=== PATIENT | male | born 1965 | race Hispanic/Latino ===

== ENCOUNTER 2016-11-05 18:56 | Inpatient (IN) | payer MEDICAID ==
--- NOTE | 2016-11-05 20:39 | Emergency Department Report ---
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 Patient denies shortness of breath or chest pain. Patient was medicated with by writing. - ROS Review of Systems: As noted in HPI - Exam Vital Signs: Vital Signs 11/05/16 19:39 Temperature 98.2 F Pulse Rate 64 Respiratory 22 Rate Blood Pressure 94/64 O2 Sat by Pulse 98 Oximetry Physical Exam: GENERAL: Alert and oriented x3, no apparent distress, Normal Gait, atraumatic. HEAD: Head is normocephalic and a-traumatic. NECK: Supple. Non edematous, No carotid bruits. No lymphadenopathy or thyromegaly. LUNGS: Symetrical with respiration, mild wheezing bilaterally, no rales or crackles. HEART: S1, S2 present, regular rate and rhythm without murmur, no rubs, no gallops. ABDOMEN: No organomegaly was noted,Positive bowel sounds, soft, and non- distended. . Nontender to palpation on all Quadrants, NO CVA tenderness. SKIN: Warm and dry, No lesions, No ulceration or induration present. MSE screening note: Focused history and physical exam performed. Due to findings the following was ordered: ED Medical Decision Making - Medical Decision Making Patient indicates that he is all out of these medications and will likely refill. Patient's vital signs are stable. Saturation 98%. Patient is in no acute or respiratory distress. Patient sent over to fast track to be seen and get his medications refilled. ED Disposition for MSE Condition: Stable
[2016-11-06] MEDS ORDERED: ATROVENT IH ONE (02:31)
[2016-11-06] MEDS ORDERED: PROVENTIL IH ONE ×2 (02:31→03:29)
[2016-11-06] MEDS ORDERED: MAGNESIUM SULFATE 2GM/50ML 50 ML IV ONE (02:32)
--- NOTE | 2016-11-06 02:33 | Emergency Department Report ---
ED Asthma HPI - General Chief Complaint: Dyspnea/Respdistress Stated Complaint: PRAVIN Time Seen by Provider: 11/06/16 02:24 Source: patient Mode of arrival: Wheelchair Limitations: Other - History of Present Illness Initial Comments: Written Communication Patient here he is deaf. Throat and communication patient reports shortness of breath and nonproductive cough with chest tightness. He ran out of his asthma medication which she said his albuterol and going since today. Denies any fever or chills. He said he is having chest tightness at 9 out of 10 and he had similar episode with his asthma attacks. MD Complaint: "asthma attack", shortness of breath, wheezing -: This afternoon Asthma History: history of prior ED visit Severity: similar to prior Context: ran out of meds Associated Symptoms: dry cough Treatments Prior to Arrival: other (none) - Related Data Current Asthma Therapy: none Home Medications Medication Instructions Recorded Confirmed Last Taken ALBUTEROL NEB's [Proventil] 2.5 mg IH TID PRN 11/06/16 11/06/16 Unknown Albuterol Sulfate [Proair 90 mcg IH Q4H PRN 11/06/16 11/06/16 Unknown Respiclick] Benzonatate 200 mg PO TID 11/06/16 11/06/16 Unknown Butalb/Acetaminophen/Caffeine 1 each PO Q4H PRN 11/06/16 11/06/16 Unknown [Fioricet 50-300-40 mg CAP] Ipratropium [Atrovent] 0.5 mg IH Q4HR 11/06/16 11/06/16 Unknown Levofloxacin [Levaquin TAB] 500 mg PO QDAY 11/06/16 11/06/16 Unknown Montelukast [Singulair] 10 mg PO QPM 11/06/16 11/06/16 Unknown Nicotine [Habitrol] 21 mg TD DAILY 11/06/16 11/06/16 Unknown methylPREDNISolone 4 mg PO QDAY 11/06/16 11/06/16 Unknown Allergies Allergy/AdvReac Type Severity Reaction Status Date / Time No Known Allergies Allergy Verified 11/05/16 19:44 ED Review of Systems ROS: Stated complaint: PRAVIN Other details as noted in HPI Comment: All other systems reviewed and negative Constitutional: denies: chills, fever ENT: denies: ear pain, throat pain, congestion Respiratory: cough, shortness of breath, SOB with exertion, wheezing. denies: SOB at rest Cardiovascular: chest pain (chest tightness). denies: palpitations, edema, syncope Gastrointestinal: denies: abdominal pain, nausea, vomiting, diarrhea Musculoskeletal: denies: back pain, arthralgia Skin: denies: rash Neurological: denies: headache, weakness, numbness, paresthesias ED Past Medical Hx - Past Medical History Previous Medical History?: Yes Hx Asthma: Yes - Surgical History Past Surgical History?: No - Family History Family history: no significant - Social History Smoking Status: Never Smoker Substance Use Type: None - Medications Home Medications: Home Medications Medication Instructions Recorded Confirmed Last Taken Type ALBUTEROL NEB's [Proventil] 2.5 mg IH TID PRN 11/06/16 11/06/16 Unknown History Albuterol Sulfate [Proair 90 mcg IH Q4H PRN 11/06/16 11/06/16 Unknown History Respiclick] Benzonatate 200 mg PO TID 11/06/16 11/06/16 Unknown History Butalb/Acetaminophen/Caffeine 1 each PO Q4H PRN 11/06/16 11/06/16 Unknown History [Fioricet 50-300-40 mg CAP] Ipratropium [Atrovent] 0.5 mg IH Q4HR 11/06/16 11/06/16 Unknown History Levofloxacin [Levaquin TAB] 500 mg PO QDAY 11/06/16 11/06/16 Unknown History Montelukast [Singulair] 10 mg PO QPM 11/06/16 11/06/16 Unknown History Nicotine [Habitrol] 21 mg TD DAILY 11/06/16 11/06/16 Unknown History methylPREDNISolone 4 mg PO QDAY 11/06/16 11/06/16 Unknown History ED Physical Exam - General Limitations: Other (patient is deaf) General appearance: alert, other (mild distress from wheezing) - Head Head exam: Present: atraumatic, normocephalic, normal inspection - Eye Eye exam: Present: normal appearance, PERRL, EOMI. Absent: periorbital swelling , periorbital tenderness Pupils: Present: normal accommodation - ENT ENT exam: Present: normal exam, normal orophraynx, mucous membranes moist, TM's normal bilaterally, normal external ear exam - Neck Neck exam: Present: normal inspection, full ROM. Absent: tenderness, lymphadenopathy - Respiratory Respiratory exam: Present: respiratory distress, wheezes, rhonchi, other ( congested cough). Absent: stridor, chest wall tenderness, accessory muscle use , decreased breath sounds, prolonged expiratory - Cardiovascular Cardiovascular Exam: Present: regular rate, normal rhythm, normal heart sounds - GI/Abdominal GI/Abdominal exam: Present: soft, normal bowel sounds. Absent: distended, tenderness, guarding, rebound, rigid - Extremities Exam Extremities exam: Present: normal inspection, full ROM, normal capillary refill. Absent: tenderness, pedal edema, joint swelling, calf tenderness - Back Exam Back exam: Present: normal inspection, full ROM. Absent: tenderness, CVA tenderness (R), CVA tenderness (L), muscle spasm, paraspinal tenderness, vertebral tenderness, rash noted - Neurological Exam Neurological exam: Present: alert, oriented X3, normal gait, reflexes normal. Absent: motor sensory deficit - Psychiatric Psychiatric exam: Present: normal affect, normal mood - Skin Skin exam: Present: warm, dry, intact, normal color. Absent: rash ED Course Vital Signs 11/05/16 11/06/16 19:39 00:57 Temperature 98.2 F 97.6 F Pulse Rate 64 79 Respiratory 22 20 Rate Blood Pressure 94/64 Blood Pressure 108/67 [Right] O2 Sat by Pulse 98 93 Oximetry - Reevaluation(s) Reevaluation #1: 11/06/16 04:20 Patient given albuterol 10 mg and Atrovent 0.5 mg nebulizer treatment in emergency room. He was also given magnesium 2 g and Solu-Medrol 125 mg IV. He still remains with difficulty in breathing. Patient is still wheezing and congested cough. Additional 10 mg of albuterol ordered and in progress. Reevaluation #2: 11/06/16 04:21 Chest x-ray revealed no acute cardiopulmonary findings. - Consultations Consultation #1: 11/06/16 04:[address] Woodward hospitalist who will accept admission. ED Medical Decision Making - Lab Data Result diagrams: 11/06/16 03:34 11/06/16 03:34 Lab Results 11/06/16 11/06/16 11/06/16 Range/Units 03:34 03:34 03:34 WBC 12.6 H (4.5-11.0) K/mm3 RBC 4.72 (3.65-5.03) M/mm3 Hgb 15.1 (11.8-15.2) gm/dl Hct 44.8 (35.5-45.6) % MCV 95 H (84-94) fl MCH 32 (28-32) pg MCHC 34 (32-34) % RDW 14.2 (13.2-15.2) % Plt Count 327 (140-440) K/mm3 Lymph # Radio Station [employer] Sodium 139 (137-145) mmol/L Potassium 4.5 (3.6-5.0) mmol/L Chloride 100.4 (98-107) mmol/L Carbon Dioxide 22 (22-30) mmol/L Anion Gap 21 mmol/L BUN 19 (9-20) mg/dL Creatinine 0.6 L (0.8-1.5) mg/dL Estimated GFR > 60 ml/min BUN/Creatinine Ratio 31.66 % Glucose 98 (75-100) mg/dL Lactic Acid 1.7 (0.7-2.0) mmol/L Calcium 9.1 (8.4-10.2) mg/dL - EKG Data EKG shows normal: sinus rhythm Rate: normal - EKG Data When compared to previous EKG there are: previous EKG unavailable Interpretation: normal EKG - Radiology Data Radiology results: report reviewed Chest x-ray revealed no acute cardiopulmonary processes - Medical Decision Making ED course: I collaborated with Dr. Larsen on patient presentation and clinical findings. Patient was given 2 g magnesium and 125 mg Solu-Medrol IV. He was also given albuterol 10 mg with Atrovent 0.5 mg nebulizer which did not relieve his wheezing and he said he did not feel better. Additional 10 mg of albuterol nebulizer given. Chest x-ray negative . It was decided the patient will be admitted to hospital as inpatient for treatment of asthma. Lactic acid normal. White count mildly elevated chemistries normal. I discussed this with patient written communication and he agrees to be admitted. I spoke with hospitalist Dr. Woodward agrees to accept patient for admission to inpatient. Critical care attestation.: If time is entered above; I have spent that time in minutes in the direct care of this critically ill patient, excluding procedure time. ED Disposition Clinical Impression: Cough Acute asthma exacerbation Qualifiers: Asthma severity: severe persistent Qualified Code(s): J45.51 - Severe persistent asthma with (acute) exacerbation Disposition: OP ADMITTED IP TO THIS HOSP Is pt being admited?: Yes Does the pt Need Aspirin: No Condition: Stable
[2016-11-06 03:49] LABS: Hematocrit 44.8 % (35.5-45.6); Hemoglobin 15.1 gm/dl (11.8-15.2); Mean Corpuscular HGB Conc 34 % (32-34); Mean Corpuscular Hemoglobin 32 pg (28-32); Mean Corpuscular Volume 95 fl (84-94); Platelet Count 327 K/mm3 (140-440); Red Blood Count 4.72 M/mm3 (3.65-5.03); Red Cell Distribution Width 14.2 % (13.2-15.2); White Blood Count 12.6 K/mm3 (4.5-11.0)
--- NOTE | 2016-11-06 04:01 | XRay Report ---
FINAL REPORT PROCEDURE: XR CHEST ROUTINE 2V TECHNIQUE: PA and lateral chest radiographs were obtained. CPT 37398 HISTORY: cough,sob COMPARISON: No prior studies are available for comparison. FINDINGS: Heart: Normal. Mediastinum/Vessels: Normal. Lungs/Pleural space: Mild hyperinflation of the lungs. No acute consolidation or effusion.. Bony thorax: No acute osseous abnormality. Other: IMPRESSION: No evidence of acute infiltrate or effusion..
[2016-11-06 04:03] LABS: BUN/Creatinine Ratio 31.66; Blood Urea Nitrogen 19 mg/dL (9-20); Calcium 9.1 mg/dL (8.4-10.2); Carbon Dioxide 22 mmol/L (22-30); Chloride 100.4 mmol/L (98-107); Glucose 98 mg/dL (75-100); Potassium 4.5 mmol/L (3.6-5.0); Sodium 139 mmol/L (137-145)
[2016-11-06 04:07] LABS: Anion Gap 21 mmol/L
--- NOTE | 2016-11-06 04:53 | History and Physical Report ---
History of Present Illness Date of examination: 11/06/16 Date of admission: 11/06/16 Chief complaint: chest pain and sob History of present illness: 51-year-old deaf male who presents to the emergency Department with complaints of cough, shortness of breath and chest tightness. Patient reports that his symptoms began approximately 3 days ago. Communication was performed by written notes. Patient is a poor historian. I am unable to determine whether the chest tightness is related to his typical asthma exacerbations. Patient is also unclear regarding history of coronary artery disease or PA in the past. Patient describes excruciating 10/10 pain. He denies any nausea, vomiting or diaphoresis. Patient reportedly ran out of his asthma medication. No reports of headache or visual disturbances. No fever chills. Past History Past Medical History: other (asthma) Past Surgical History: No surgical history Social history: no significant social history Family history: no significant family history Medications and Allergies Allergies Allergy/AdvReac Type Severity Reaction Status Date / Time No Known Allergies Allergy Verified 11/05/16 19:44 Home Medications Medication Instructions Recorded Confirmed Last Taken Type ALBUTEROL NEB's [Proventil] 2.5 mg IH TID PRN 11/06/16 11/06/16 Unknown History Albuterol Sulfate [Proair 90 mcg IH Q4H PRN 11/06/16 11/06/16 Unknown History Respiclick] Benzonatate 200 mg PO TID 11/06/16 11/06/16 Unknown History Butalb/Acetaminophen/Caffeine 1 each PO Q4H PRN 11/06/16 11/06/16 Unknown History [Fioricet 50-300-40 mg CAP] Ipratropium [Atrovent] 0.5 mg IH Q4HR 11/06/16 11/06/16 Unknown History Levofloxacin [Levaquin TAB] 500 mg PO QDAY 11/06/16 11/06/16 Unknown History Montelukast [Singulair] 10 mg PO QPM 11/06/16 11/06/16 Unknown History Nicotine [Habitrol] 21 mg TD DAILY 11/06/16 11/06/16 Unknown History methylPREDNISolone 4 mg PO QDAY 11/06/16 11/06/16 Unknown History Review of Systems All systems: negative Exam - Constitutional Vitals: Temp Pulse Resp BP Pulse Ox 97.6 F 79 20 108/67 93 11/06/16 00:57 11/06/16 00:57 11/06/16 00:57 11/06/16 00:57 11/06/16 00:57 General appearance: Present: no acute distress, well-nourished - EENT Eyes: Present: PERRL ENT: hearing intact, clear oral mucosa - Neck Neck: Present: supple, normal ROM - Respiratory Respiratory effort: normal Respiratory: bilateral: diminished, rhonchi, wheezing - Cardiovascular Heart Sounds: Present: S1 & S2. Absent: rub, click - Extremities Extremities: pulses symmetrical, No edema Peripheral Pulses: within normal limits - Abdominal General gastrointestinal: Present: soft, non-tender, non-distended, normal bowel sounds Male genitourinary: Present: normal - Integumentary Integumentary: Present: clear, warm, dry - Musculoskeletal Musculoskeletal: gait normal, strength equal bilaterally - Psychiatric Psychiatric: appropriate mood/affect, intact judgment & insight - Neurologic Neurologic: CNII-XII intact, moves all extremities Results - Labs CBC & Chem 7: 11/06/16 03:34 11/06/16 03:34 Labs: Laboratory Last Values WBC 12.6 K/mm3 (4.5-11.0) H 11/06/16 03:34 RBC 4.72 M/mm3 (3.65-5.03) 11/06/16 03:34 Hgb 15.1 gm/dl (11.8-15.2) 11/06/16 03:34 Hct 44.8 % (35.5-45.6) 11/06/16 03:34 MCV 95 fl (84-94) H 11/06/16 03:34 MCH 32 pg (28-32) 11/06/16 03:34 MCHC 34 % (32-34) 11/06/16 03:34 RDW 14.2 % (13.2-15.2) 11/06/16 03:34 Plt Count 327 K/mm3 (140-440) 11/06/16 03:34 Lymph # Pleater Hand 11/06/16 03:34 Sodium 139 mmol/L (137-145) 11/06/16 03:34 Potassium 4.5 mmol/L (3.6-5.0) 11/06/16 03:34 Chloride 100.4 mmol/L (98-107) 11/06/16 03:34 Carbon Dioxide 22 mmol/L (22-30) 11/06/16 03:34 Anion Gap 21 mmol/L 11/06/16 03:34 BUN 19 mg/dL (9-20) 11/06/16 03:34 Creatinine 0.6 mg/dL (0.8-1.5) L 11/06/16 03:34 Estimated GFR > 60 ml/min 11/06/16 03:34 BUN/Creatinine Ratio 31.66 % 11/06/16 03:34 Glucose 98 mg/dL (75-100) 11/06/16 03:34 Lactic Acid 1.7 mmol/L (0.7-2.0) 11/06/16 03:34 Calcium 9.1 mg/dL (8.4-10.2) 11/06/16 03:34 Assessment and Plan Assessment and plan: 1. Acute asthma exacerbation. Patient was placed some asthma pathway and treated with nebulizer treatments, IV steroids and antibiotics. 2. Chest pain. Etiology may be secondary to #1. Patient will place on the chest pain pathway and continue to trend cardiac enzymes. Patient may need stress evaluation once asthma exacerbation has resolved. 3. Acute bronchitis. IV antibiotics.
[2016-11-06] MEDS ORDERED: BABY ASPIRIN PO STA (04:58)
[2016-11-06] MEDS ORDERED: MILK OF MAGNESIA PO PRN (04:58)
[2016-11-06] MEDS ORDERED: DULCOLAX PR PRN (04:58)
[2016-11-06] MEDS ORDERED: SODIUM CHLORIDE FLUSH SYRINGE 10 ML IV PRN (04:58)
[2016-11-06] MEDS ORDERED: ZOFRAN IV PRN (04:58)
[2016-11-06] MEDS ORDERED: LEVAQUIN 500MG/100ML 100 ML IV SCH (05:03)
[2016-11-06 05:22] LABS: Creatine Kinase MB 2.2 ng/mL (0.0-4.0)
[2016-11-06 05:24] LABS: Creatine Kinase 115 units/L (55-170)
[2016-11-06 06:06] LABS: Anisocytosis 1+; Basophils % (Manual) 0 % (0.0-1.8); Blastocytes % (Manual) 0 %; Hypochromasia 1+
[2016-11-06 06:07] LABS: Diff Status Complete; Large Platelets Rare
--- NOTE | 2016-11-06 06:54 | Admit Criteria Form ---
Admission Criteria Documentation: ASTHMA Clinical Indications for Admission to Inpatient Care (Place 'X' for any and all applicable criteria): Admission is indicated for ANY ONE of the following (1)(2)(3)(4)(5): [ ]I. Absent or markedly diminished breath sounds (silent chest) [ ]II. Oxygen saturation < 92% [ ]III. PaCO2 = / > 42 mm Hg (5.6 kPa) [ ]IV. Peak expiratory flow rate < 40% of predicted or personal best after treatment. [ ]V. Peak expiratory flow rate < 33% of predicted or personal before after treatment [ ]. Change in mental status [ ]VII. Ventilatory support required [ ]VIII. PaO2 < 60 mm Hg (8.0 kPa) [ ]IX. Cyanosis [ ]X. Cardiac dysrhythmia (e.g., bradycardia) [ ]XI. Hemodynamic instability [ ]XII. Radiographic evidence of complication requiring inpatient treatment (e.g., pneumonia, pneumothorax) [X ]XIII. Inpatient admission required rather than observation care (also use Asthma: Observation Care guideline as appropriate) because of ANY ONE of the following: [ X]a) Respiratory finding that is severe or persistent (eg, dyspnea, tachypnea, accessory muscle use) [ ]b) Airflow measurements less than 60% of predicted or personal best that persist (e.g., over 24 hours) or worsen despite treatments [ ]c) Supplemental oxygen or respiratory treatments for over 24 hours that are performable only in acute inpatient setting [ ]d) Other condition, treatment or monitoring requiring inpatient admission. Extended stay beyond goal length of stay may be needed for (26)(27)(28): [ ]a) Severe respiratory failure (23) (29) (30) [ ]b) Secondary causes and complications (25) [ ]c) Status asthmaticus [ ]d) Chronic obstructive asthma [ ]e) Older patients (29) [ ]f) Slow resolution [ ]g) Clinically significant exacerbation of comorbidities (eg, dilcia. heart failure, atrial fibrillation) The original [employer] content created by [employer] has been revised. The portions of the content which have been revised are identified through the use of italic text or in bold, and [employer]: [employer] has neither reviewed nor approved the modified material. All other unmodified content is copyright [employer] Please see references footnoted in the original [facility] edition 2016 Admission Criteria Met: Yes
[2016-11-06] MEDS: DUONEB 0.5 MG-3 MG/3 ML SOLN IH SCH ×3 (07:26→20:18)
[2016-11-06] MEDS ORDERED: BENZONATATE 200 MG PO SCH (08:00)
[2016-11-06 08:01] LABS: Creatine Kinase MB 2.4 ng/mL (0.0-4.0)
[2016-11-06 08:04] LABS: Creatine Kinase 116 units/L (55-170)
[2016-11-06] MEDS: TESSALON PERLES PO SCH ×3 (09:59→20:47)
[2016-11-06] MEDS: TYLENOL PO PRN ×2 (10:00→18:25)
[2016-11-06] MEDS ORDERED: LOVENOX SUB-Q SCH (10:00)
[2016-11-06] MEDS ORDERED: HABITROL TD SCH (10:00)
[2016-11-06 11:58] LABS: Creatine Kinase MB 2.5 ng/mL (0.0-4.0)
[2016-11-06 11:59] LABS: Creatine Kinase 104 units/L (55-170)
--- NOTE | 2016-11-06 16:08 | Event Note ---
Date: 11/06/16 Patient seen and examined. Will check CT head and also the Stress test. Continue current therapy
--- NOTE | 2016-11-06 17:01 | Cat Scan Report ---
CT HEAD WITHOUT CONTRAST INDICATION: Headache. COMPARISON: None similar. FINDINGS: Noncontrast head CT demonstrates normal ventricles and sulci. No acute infarct, hemorrhage, mass effect or midline shift. No abnormal supratentorial extra axial fluid collections. Posterior fossa though demonstrates approximately 2.5 cm AP x 8.7 cm transverse CSF attenuation posteriorly, somewhat flattening/effacing the cerebellar hemispheres as on axial image 22, series 2 amongst others. Fourth ventricle contours and position though maintained. Preserved basilar cisterns. Possible partially empty sella. Leftward nasal septal deviation/approximately 4 mm leftward nasal septal spur. Mild, left more than right maxillary sinus mucosal thickening. Moderate bilateral ethmoid sinusitis and mild bilateral frontal and sphenoid sinus mucosal thickening as well. Clear mastoid air cells. Mild atherosclerotic internal carotid artery calcifications. Unremarkable eye globes. Normal calvarium and scalp. Few radiopaque dental material. CONCLUSION: No acute intracranial CT abnormality, though mild pansinusitis noted as also CSF attenuation in the posterior fossa posteriorly, latter possibly an arachnoid cyst or scarlett cisterna magna, amongst others. Direct comparison with prior neuroimaging would also be helpful to reassure stability, if available. Thank you for the opportunity to participate in this patient's care.
[2016-11-06] MEDS ORDERED: SINGULAIR PO SCH (18:00)
[2016-11-06] MEDS: FIORICET PO PRN (22:21)
[2016-11-07] MEDS: DUONEB 0.5 MG-3 MG/3 ML SOLN IH SCH ×3 (01:49→14:17)
[2016-11-07] MEDS: FIORICET PO PRN (02:29)
--- NOTE | 2016-11-07 08:35 | Discharge Summary ---
Providers - Providers Date of Admission: 11/06/16 04:58 Date of discharge: 11/07/16 Attending physician: LYDIA MAGALLANES MD 11/07/16 08:29 Consult to Physician [CONS] Routine Consulting Provider: JORGE LOPEZ Reason For Exam: Migraineous Headache Primary care physician: GLOST KILN PLACER Hospitalization Reason for admission: chest pain, headache, shortness of breath Condition: Stable Hospital course: 51-year-old deaf male who presents to the emergency Department with complaints of cough, shortness of breath and chest tightness. Patient reports that his symptoms began approximately 3 days ago. Communication was performed by written notes. Patient is a poor historian. I am unable to determine whether the chest tightness is related to his typical asthma exacerbations. Patient is also unclear regarding history of coronary artery disease or CA in the past. Patient describes excruciating 10/10 pain. He denies any nausea, vomiting or diaphoresis. Patient reportedly ran out of his asthma medication. No reports of headache or visual disturbances. No fever chills. Patient did proceed to have a stress test which was negative a CT of the brain was done was also negative as he was complaining of significant migrainous-appearing headache with some visual changes. 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 He states that this has been going on for about a month. Neurology to see the patient due to an arachnoid cyst noted on imaging. Patient will follow with neurology outpatient. . Disposition: DISCHARGED TO HOME OR SELFCARE Time spent for discharge: 35 mins - Discharge Diagnoses (1) Sinusitis Status: Acute (2) Acute asthma exacerbation Status: Chronic Qualifiers: Asthma severity: severe persistent Qualified Code(s): J45.51 - Severe persistent asthma with (acute) exacerbation (3) Deaf Status: Chronic (4) Mute Status: Chronic (5) Migraine Status: Chronic (6) Arachnoid cyst Status: Chronic (7) Chest pain due to psychological stress Status: Resolved Core Measure Documentation - Palliative Care Palliative Care/ Comfort Measures: Not Applicable - Core Measures Any of the following diagnoses?: none - VTE Discharge Requirements Deep Vein Thrombosis/Pulmonary Embolism Present on Admission: No Exam - Physical Exam Narrative exam: VITAL SIGNS: Reviewed. GENERAL: The patient appeared well nourished and normally developed. Vital signs as documented. HEAD: No signs of head trauma. EYES: Pupils are equal. Extraocular motions intact. EARS: Hearing grossly intact. MOUTH: Oropharynx is normal. NECK: No adenopathy, no JVD. CHEST: Chest with clear breath sounds bilaterally. No wheezes, rales, or rhonchi. CARDIAC: Regular rate and rhythm. S1 and S2, without murmurs, gallops, or rubs. VASCULAR: No Edema. Peripheral pulses normal and equal in all extremities. ABDOMEN: Soft, without detectable tenderness. No sign of distention. No rebound or guarding, and no masses palpated. Bowel Sounds normal. MUSCULOSKELETAL: Good range of motion of all major joints. Extremities without clubbing, cyanosis or edema. NEUROLOGIC EXAM: Alert and oriented x 3. No focal sensory or strength deficits. Deaf and Mute. Follows commands. PSYCHIATRIC: Mood normal. SKIN: No rash or lesions. - Constitutional Vitals: Temp Pulse Resp BP Pulse Ox 97.5 F L 56 L 20 114/65 97 11/07/16 07:00 11/07/16 08:30 11/07/16 07:00 11/07/16 07:00 11/07/16 07:00 Plan Activity: advance as tolerated, fall precautions Diet: low cholesterol Special Instructions: record daily BP diary Follow up with: PRIMARY CARE, [Primary Care Provider] - 3-5 Days JORGE LOPEZ MD [Staff Physician] - 7 Days Prescriptions: Butalb/Acetaminophen/Caffeine [Fioricet 50-300-40 mg CAP] 1 each PO Q4H PRN #30 capsule PRN Reason: Pain ALBUTEROL NEB's [Proventil 0.083% NEBS] 2.5 mg IH TID PRN #1 nebu PRN Reason: Wheezing Azithromycin [Zithromax TAB] 250 mg PO QDAY #7 tablet Prednisone [predniSONE 10 mg (6-Day Pack, 21 Tabs)] 10 mg PO .TAPER #1 tab.ds.pk
[2016-11-07] MEDS ORDERED: LEXISCAN IV ONE ×2 (08:40→08:44)
--- NOTE | 2016-11-07 11:13 | Treadmill Report ---
NUCLEAR STRESS TEST REASON FOR STUDY: Chest pain. IMAGING PROTOCOL: The patient received 10 mCi of Technetium 99m Tetrofosmin for resting image and 28 mCi of Technetium 99m Tetrofosmin for stress imaging. The imaging for the whole procedure was completed 30-90 minutes following the initial injection of Technetium 99m tetrofosmin. The SPECT imaging in the 180 degree arc was performed in the right anterior oblique projection. Computerized reconstruction of the images was performed for analysis. IMAGING RESULTS: Normal cavity size from stress to rest. Normal distribution of radionuclide in the anterior, inferior, septal, and apical regions. Gated SPECT, EF greater than 65% with no wall motion abnormality. The patient infused Lexiscan with no EKG changes. SUMMARY: 1. Negative Lexiscan EKG. 2. Normal rest and stress myocardial perfusion scan. No significant stress ischemia. No wall motion abnormality. Gated SPECT, EF greater than 65%. JOB# [id number] CAMERON/FRANKIE
[2016-11-07 11:47] VITALS: BP 103/67
[2016-11-07] MEDS ORDERED: PNEUMOVAX 23 IM ONE (12:00)
[2016-11-07] MEDS ORDERED: FLUARIX QUAD 2016-2017(36 MOS+) IM ONE (12:00)
--- NOTE | 2016-11-07 12:14 | Query- Chest Pain ---
Rosey Duff Mary Anne Date: 11/07/16 Chair Caner/CDS:___Jasonrubi Hudsonjuan francisco Phone#:____[phone] Exercise your independent professional judgment when responding to query. Questions asked do not imply a particular answer is desired or expected. We greatly appreciate your clarification on this issue. Clinical Documentation States: 51 year old male was admitted on 11/06/16. The patient was diagnosed with asthma exacerbation. The discharge diagnosis states " 51 year old male presents to the emergency department with cough , shortness of breath, and chest tightness. The patient describes excruciating 10/10 pain" The treadmill stress test states " negative lexiscan EKG. Normal rest and stress myocardial perfusion scan. EF greater than 65%" Please document the etiology of Chest Pain: [ ] Myocardial Infarction [ ] Pneumonia [ ] Mediastinitis [x ] Costochondritis [ ] Pulmonary Embolism [ ] Coronary Artery Disease [ ] GERD [ ] Other: [ ] Comment/Explanation: Present on Admission: [x ] Yes (Y) [ ] Clinically undeterminable (W) [ ] No(N) Please document response in your Progress Notes and/or Discharge Summary and indicate if the condition was present on admission. YAYA
--- NOTE | 2016-11-07 12:23 | Consultation ---
History of Present Illness - Reason for Consult Consult date: 11/07/16 CT - History of Present Illness went over the CT and this does appear to be arachnoid cyst and can contribute to headaches will discuss management with the patient Past History Past Medical History: other (asthma) Past Surgical History: No surgical history Social history: no significant social history Family history: no significant family history Medications and Allergies Allergies Allergy/AdvReac Type Severity Reaction Status Date / Time No Known Allergies Allergy Verified 11/05/16 19:44 Home Medications Medication Instructions Recorded Confirmed Last Taken Type Albuterol Sulfate [Proair 90 mcg IH Q4H PRN 11/06/16 11/06/16 Unknown History Respiclick] Benzonatate 200 mg PO TID 11/06/16 11/06/16 Unknown History Ipratropium [Atrovent NEB] 0.5 mg IH Q4HR 11/06/16 11/06/16 Unknown History Levofloxacin [Levaquin TAB] 500 mg PO QDAY 11/06/16 11/06/16 Unknown History Montelukast [Singulair] 10 mg PO QPM 11/06/16 11/06/16 Unknown History Nicotine [Habitrol] 21 mg TD DAILY 11/06/16 11/06/16 Unknown History ALBUTEROL NEB's [Proventil 0.083% 2.5 mg IH TID PRN #1 nebu 11/07/16 Unknown Rx NEBS] Azithromycin [Zithromax TAB] 250 mg PO QDAY #7 tablet 11/07/16 Unknown Rx Butalb/Acetaminophen/Caffeine 1 each PO Q4H PRN #30 capsule 11/07/16 Unknown Rx [Fioricet 50-300-40 mg CAP] Prednisone [predniSONE 10 mg 10 mg PO .TAPER #1 tab.ds.pk 11/07/16 Unknown Rx (6-Day Pack, 21 Tabs)] Active Meds: Active Medications Acetaminophen (Tylenol) 650 mg PO Q4H PRN PRN Reason: Pain MILD(1-3)/Fever >100.5/BEAN Last Admin: 11/06/16 18:25 Dose: 650 mg Acetaminophen/Butalbital/Caffeine (Fioricet) 1 tab PO Q4H PRN PRN Reason: Headache Last Admin: 11/07/16 02:29 Dose: 1 tab Albuterol/Ipratropium (Duoneb 0.5 Mg-3 Mg/3 Ml Soln) 1 ampul IH Q6HRT [facility] Last Admin: 11/07/16 08:16 Dose: Not Given Benzonatate (Tessalon Perles) 200 mg PO TID [facility] Last Admin: 11/06/16 20:47 Dose: 200 mg Bisacodyl (Dulcolax) 10 mg OH QDAY PRN PRN Reason: Constipation unrelieved by MOM Enoxaparin Sodium (Lovenox) 40 mg SUB-Q QDAY [facility] Last Admin: 11/06/16 09:59 Dose: 40 mg Levofloxacin/Dextrose (Levaquin 500mg/100ml) 100 mls @ 100 mls/hr IV DAILY [facility] Last Admin: 11/06/16 05:38 Dose: 100 mls/hr Magnesium Hydroxide (Milk Of Magnesia) 30 ml PO Q4H PRN PRN Reason: Constipation Methylprednisolone Sodium Succinate (Solu-Medrol) 80 mg IV Q8H [facility] Last Admin: 11/07/16 02:30 Dose: 80 mg Montelukast Sodium (Singulair) 10 mg PO QPM [facility] Last Admin: 11/06/16 18:25 Dose: 10 mg Nicotine (Habitrol) 21 mg TD DAILY [facility] Last Admin: 11/06/16 09:59 Dose: 21 mg Ondansetron HCl (Zofran) 4 mg IV Q8H PRN PRN Reason: N/V unrelieved by Reglan Sodium Chloride (Sodium Chloride Flush Syringe 10 Ml) 10 ml IV PRN PRN PRN Reason: LINE FLUSH Exam - Constitutional Vitals: Temp Pulse Resp BP Pulse Ox 97.2 F L 78 20 116/70 97 11/07/16 11:00 11/07/16 11:00 11/07/16 11:00 11/07/16 11:00 11/07/16 11:00 Results - Labs CBC & Chem 7: 11/06/16 03:34 11/06/16 03:34
== END 2016-11-07 15:40 | disposition home or self-care (01) | DRG 206 ==
LOC: ED 18:56 → 3A 11-06 04:58 → 4A 11-06 06:00
PROVIDERS: ADMIT Hospitalist; ATTEND Internal Medicine
DX: M94.0 Chondrocostal junction syndrome [Tietze] (principal); J45.51 Severe persistent asthma with (acute) exacerbation; J20.9 Acute bronchitis, unspecified; J32.9 Chronic sinusitis, unspecified; H91.3 Deaf nonspeaking, not elsewhere classified; G43.909 Migraine, unspecified, not intractable, without status migrainosus; G93.0 Cerebral cysts; Z79.899 Other long term (current) drug therapy
CPT/HCPCS: 36415; 70450; 71020; 78452; 80048; 82140; 82550; 82553; 84484; 85007; 85025; 90686; 90732; 93005; 93010; 93017; 94640; 94644; 96365; 96367; 96375; A9502; J1650; J1956; J2785; J2920; J2930; J3475